=== PATIENT | male | born 1990 | race Caucasian/White ===

== ENCOUNTER 2022-03-18 00:58 | Emergency (ER) | payer MEDICAID ==
[~2022-03-18] VITALS: Ht 177.8 cm; Wt 91.0 kg
[2022-03-18] MEDS ORDERED: IBUPROFEN 600MG TABLET PO NR (02:15)
[2022-03-18] MEDS ORDERED: IBUP-2029 MT (02:15)
[2022-03-18 02:27] VITALS: BP 124/81
[2022-03-18] MEDS ORDERED: IBUP-2029 PO (05:38)
== END 2022-03-18 02:31 | disposition home or self-care (01) ==
LOC: ER 00:58
DX: S60.812A Abrasion of left wrist, initial encounter (principal); F10.129 Alcohol abuse with intoxication, unspecified; Y90.6 Blood alcohol level of 120-199 mg/100 ml; W50.2XXA Accidental twist by another person, initial encounter; Y93.89 Activity, other specified; Y92.89 Other specified places as the place of occurrence of the external cause; Y99.8 Other external cause status
CPT/HCPCS: 36415; 80320; 82962; 99283; G0480

== ENCOUNTER 2022-03-18 03:17 | Emergency (ER) | payer MEDICAID ==
[~2022-03-18] VITALS: Ht 180.3 cm; Wt 95.5 kg
[~2022-03-18 03:17] MED LIST: IBUP-2029 MT
[2022-03-18 03:26] VITALS: BP 113/76
[2022-03-18] MEDS ORDERED: IBUP-2029 PO (05:38)
== END 2022-03-18 06:01 | disposition home or self-care (01) ==
LOC: ER 03:17
DX: S60.812A Abrasion of left wrist, initial encounter (principal); M25.531 Pain in right wrist; M25.532 Pain in left wrist; Y08.89XA Assault by other specified means, initial encounter; Y93.89 Activity, other specified; Y92.89 Other specified places as the place of occurrence of the external cause; Y99.8 Other external cause status; M25.571 Pain in right ankle and joints of right foot; M79.651 Pain in right thigh
CPT/HCPCS: 73110; 73610; 99284